=== PATIENT | male | born 1990 | race Hispanic/Latino ===

== ENCOUNTER 2021-05-15 17:45 | Emergency (ER) | payer OTHER, SELFPAY ==
--- NOTE | ~2021-05-15 | XR_ITS ---
EXAMINATION: XR thoracic spine 3V DATE: 05/15/2021 19:26 INDICATION: Upper back pain TECHNIQUE: AP, lateral and lateral swimmer's views of the thoracic spine were obtained. COMPARISON: None. FINDINGS: There is dextrocurvature of the upper thoracic spine. Bone alignment is normal. There is no fracture. The vertebral body heights are maintained. Intervertebral disc spaces are normal. IMPRESSION: 1. No acute osseous abnormality. Reviewed, dictated and finalized at location A.
[2021-05-15 17:56] VITALS: BP 129/91; PULSE 87; RESP 14; TEMP 36.3; O2SAT 100
[2021-05-15 19:36] VITALS: BP 129/91; PULSE 81; RESP 16; TEMP 36.6; O2SAT 99
[2021-05-15 19:59] VITALS: BP 124/78; PULSE 74; RESP 16; O2SAT 99
--- NOTE | 2021-05-15 20:41 | ED.BACK ---
HPI - Back Pain/Injury General Chief Complaint: Back Pain/Injury Stated Complaint: back injury Time Seen by Provider: 05/15/21 19:36 Source: patient Mode of arrival: ambulatory Limitations: no limitations History of Present Illness HPI Narrative: Patient presents with chief complaint of pain to his upper back that began while working. Patient reports that he lifted a 6 x 6 piece of lumbar and then began having pain in his upper back. Patient reports pain with any movement. He has not taken anything to alleviate his symptoms. Patient denies paresthesia or loss of bowel or bladder function. Related Data Allergies Allergy/AdvReac Type Severity Reaction Status Date / Time No Known Allergies Allergy Verified 05/15/21 19:38 Review of Systems Review of Systems: CONSTITUTIONAL: Denies fever, chills, or sweats. EYES: Denies visual changes, redness, or discharge. ENT: Denies rhinorrhea, congestion, sore throat, or otalgia. CARDIOVASCULAR: Denies chest pain, palpitations, or edema. RESPIRATORY: Denies cough or dyspnea. GASTROINTESTINAL: Denies abdominal pain, nausea, vomiting, or diarrhea. GENITOURINARY: Denies dysuria or hematuria. SKIN: Denies rash or itching. MUSCULOSKELETAL: Reports back pain, denies joint pain, or myalgia. NEUROLOGIC: Denies headache, numbness, dizziness, or weakness. PSYCHIATRIC: Denies anxiety or depression. Exam Narrative: GENERAL: Well-appearing, well-nourished, and in no acute distress. HEAD: Normocephalic, atraumatic. NECK: Supple. No adenopathy or masses. Range of motion intact no pain with range of motion. CHEST: Clear to auscultation. No respiratory distress. No wheezes rales or rhonchi HEART: Regular rate and rhythm. No murmur heard. Normal peripheral pulses. BACK: Muscle spasming noted to paraspinal muscles of the thoracic area. Step-offs not palpated. Pain elicited with any flexion extension or rotation. EXTREMITIES: Normal range of motion. No edema. SKIN: Warm, dry, no rash. NEURO: No focal deficits. Alert and oriented x3. PSYCH: Normal mood and affect. Course Vital Signs Vital signs: Vital Signs Temperature 97.4 F L 05/15/21 17:56 Pulse Rate 87 05/15/21 17:56 Respiratory Rate 14 10/18/21 17:56 Blood Pressure 129/91 H 05/15/21 17:56 Pulse Oximetry 100 05/15/21 17:56 Temperature 97.9 F 05/15/21 19:36 Pulse Rate 74 05/15/21 19:59 Respiratory Rate 16 05/15/21 19:59 Blood Pressure 124/78 05/15/21 19:59 Pulse Oximetry 99 05/15/21 19:59 MDM - Back Pain/Injury MDM Narrative Medical decision making narrative: Patient's x-ray was negative for any fracture. Patient will be given Toradol and Solu-Medrol to help with pain and inflammation. Patient will be discharged home with naproxen and cyclobenzaprine. Patient has been instructed to follow-up with his primary care for further investigation into his symptoms. Patient has been instructed if his symptoms persist he may require MRI for further investigation. Imaging Data Radiologist's impression: ITS Impressions Thoracic Spine X-Ray 05/15/21 19:29 IMPRESSION: 1. No acute osseous abnormality. Discharge Plan Discharge Clinical Impression: Spasm of thoracic back muscle Patient Disposition: Home, Self-Care Condition: Improved Instructions: Antibiotic Form, Thoracic Back Strain (ED) Additional Instructions: Take naproxen and cyclobenzaprine as directed. Do not take cyclobenzaprine if you be driving operate heavy machinery as it can cause drowsiness. Do not take any other NSAIDs with naproxen. You may take Tylenol supplementation if desired. Apply cool compress to areas of swelling discomfort. You may apply warm moist compresses and gentle stretching and massage as well. Follow-up with your primary care OR [facility] within one week for reevaluation. Return to emergency department if you have any worsening or emergent symptoms. Prescriptions: New naproxen 500 mg tab
[2021-05-15] MEDS: KETOROLAC 30 MG/ML VIAL (*BKC) IM (21:04)
[2021-05-15] MEDS: methylPREDNISolone SOD SUCC 125 MG VIAL IM (21:05)
[2021-05-15 21:08] VITALS: BP 120/74; PULSE 77; RESP 18; O2SAT 99
== END 2021-05-15 21:09 | disposition home or self-care (01) ==
PROVIDERS: Emergency Provider Emergency Medicine; PCP Internal Medicine Infectious Disease
DX: M62.830 Muscle spasm of back (principal)
CPT/HCPCS: 72072; 96372; 99284; J1885; J2930